=== PATIENT | male | born 1945 | race Caucasian/White ===

== ENCOUNTER 2022-02-04 23:39 | Observation (INO) | payer MEDICARE, OTHER ==
[2022-02-05 00:19] VITALS: BMI 39.0
[2022-02-05] MEDS ORDERED: Guaifenesin DM 100-10/5 ML UDCUP PO PRN (01:16)
[2022-02-05] MEDS ORDERED: Ondansetron PF 4 MG/2 ML Vial IVP PRN (01:16)
[2022-02-05] MEDS ORDERED: Acetaminophen 325 MG TAB PO PRN (01:16)
[2022-02-05] MEDS ORDERED: Calcium Carbonate 500 MG ChewTAB PO PRN (01:16)
[2022-02-05] MEDS ORDERED: Senokot S 8.6-50 MG TAB PO PRN (01:16)
[2022-02-05] MEDS ORDERED: Atorvastatin Calcium 20 MG TAB PO SCH ×2 (01:30→21:00)
[2022-02-05] MEDS ORDERED: Minoxidil 2.5 MG TAB PO SCH ×2 (01:30→21:00)
[2022-02-05] MEDS ORDERED: Potassium Chloride 20 MEQ TAB PO SCH (01:30)
[2022-02-05] MEDS ORDERED: Carvedilol 25 MG TAB PO SCH ×2 (01:30→09:00)
[2022-02-05] MEDS ORDERED: Losartan 25 MG TAB PO SCH (01:30)
[2022-02-05 02:21] LABS: CKMB 1.8 ng/mL (0-6.6)
[2022-02-05 06:12] LABS: Calcium 8.9 mg/dL (7.8-10.44)
[2022-02-05 06:13] LABS: Anion Gap 15 mmol/L (10-20); BUN (Urea Nitrogen) 17 mg/dL (8.4-25.7); Calc. Creatinine Clearance 92 mL/min (70-130); Carbon Dioxide 24 mmol/L (23-31); Chloride 109 mmol/L (98-107); Glucose 97 mg/dL (83-110); Potassium 3.6 mmol/L (3.5-5.1); Sodium 144 mmol/L (136-145)
[2022-02-05 06:33] LABS: CKMB 1.8 ng/mL (0-6.6)
[2022-02-05] MEDS ORDERED: Allopurinol 300 MG TAB PO SCH (09:00)
[2022-02-05] MEDS ORDERED: Amlodipine 10 MG TAB PO SCH (09:00)
[2022-02-05] MEDS ORDERED: Furosemide 40 MG TAB PO SCH (09:00)
[2022-02-05] MEDS ORDERED: Tamsulosin HCl 0.4 MG CAP PO SCH (09:00)
[2022-02-05] MEDS ORDERED: Enoxaparin Sodium 40 MG/0.4 ML SYRINGE SC SCH (09:00)
[2022-02-05 12:33] VITALS: BP 154/70; TEMP 98.7
[2022-02-05] MEDS ORDERED: Aspirin 81 mg Enteric Coated Tablet PO SCH (21:00)
[2022-02-05] MEDS ORDERED: Losartan Potassium 50 MG TAB PO SCH (21:00)
== END 2022-02-05 12:00 | disposition home or self-care (01) ==
LOC: INTOOBSV 23:39 → UNDOADMOB 23:39 → CSHTELE 23:39 → UNDODISOB 02-05 12:00
PROVIDERS: ADMIT Student in an Organized Health Care Education/Training Program; ATTEND Student in an Organized Health Care Education/Training Program
DX: R00.2 Palpitations (principal); R06.00 Dyspnea, unspecified; I44.0 Atrioventricular block, first degree; I44.7 Left bundle-branch block, unspecified; R77.8 Other specified abnormalities of plasma proteins; I13.0 Hypertensive heart and chronic kidney disease with heart failure and stage 1 through stage 4 chronic kidney disease, or unspecified chronic kidney disease; N18.31 Chronic kidney disease, stage 3a; I50.9 Heart failure, unspecified; I25.10 Atherosclerotic heart disease of native coronary artery without angina pectoris; E78.5 Hyperlipidemia, unspecified; Z79.899 Other long term (current) drug therapy; Z79.82 Long term (current) use of aspirin; Z95.5 Presence of coronary angioplasty implant and graft; N40.0 Benign prostatic hyperplasia without lower urinary tract symptoms; R93.89 Abnormal findings on diagnostic imaging of other specified body structures; D68.62 Lupus anticoagulant syndrome
CPT/HCPCS: 80048; 82553; 82962; 84443; 84484 ×2; 93005; 93306; G0378; 36415; 36416; 93010

== ENCOUNTER 2022-03-31 11:22 | Outpatient (CLI) | payer MEDICARE, OTHER | END 2022-03-31 11:23 | disposition home or self-care (01) | LOC: CSHLAB 11:22 | PROVIDERS: ATTEND Internal Medicine | DX: Z20.822 Contact with and (suspected) exposure to COVID-19 (principal) | CPT/HCPCS: 87811 ==

== ENCOUNTER 2022-04-04 13:22 | Outpatient (CLI) | payer MEDICARE, OTHER | END 2022-04-04 13:23 | disposition home or self-care (01) | LOC: CSHCP 13:22 | PROVIDERS: ATTEND Internal Medicine | DX: R06.09 Other forms of dyspnea (principal); R94.2 Abnormal results of pulmonary function studies | CPT/HCPCS: 94060; 94726; 94729; 94760 ==

== ENCOUNTER 2023-07-17 05:50 | Day surgery (SDC) | payer MEDICARE, OTHER ==
[2023-07-14 12:05] VITALS: BMI 30.7
[2023-07-17] MEDS ORDERED: Midazolam HCl 2 mg/2 ml Vial ONE (07:35)
[2023-07-17] MEDS ORDERED: PROPOFOL 60 ML ONE (07:36)
== END 2023-07-17 09:57 | disposition home or self-care (01) ==
LOC: CSHSDC 05:50
PROVIDERS: ATTEND Internal Medicine Gastroenterology
PROC: 0DBK8ZZ Excision of Ascending Colon, Via Natural or Artificial Opening Endoscopic (ICD-10-PCS; principal; 2023-07-17)
PROC: 0DBN8ZZ Excision of Sigmoid Colon, Via Natural or Artificial Opening Endoscopic (ICD-10-PCS; 2023-07-17)
DX: Z12.11 Encounter for screening for malignant neoplasm of colon (principal); D12.2 Benign neoplasm of ascending colon; D12.5 Benign neoplasm of sigmoid colon; K57.30 Diverticulosis of large intestine without perforation or abscess without bleeding; K64.8 Other hemorrhoids; I48.91 Unspecified atrial fibrillation; I10 Essential (primary) hypertension; Z86.010 Personal history of colon polyps; Z88.5 Allergy status to narcotic agent; Z88.8 Allergy status to other drugs, medicaments and biological substances; Z79.82 Long term (current) use of aspirin; Z86.73 Personal history of transient ischemic attack (TIA), and cerebral infarction without residual deficits; Z79.899 Other long term (current) drug therapy
CPT/HCPCS: 88305; J2250; J2704

== ENCOUNTER 2023-07-22 22:02 | Inpatient (IN) | payer MEDICARE, OTHER ==
[2023-07-22 23:19] LABS: #Basophils 0.1 10x3/uL (0.0-0.2); #Eosinphils 0.1 10x3/uL (0.0-0.5); #Monocytes 0.3 10x3/uL (0.0-1.1); #Neutrophils 3.4 10x3/uL (1.5-8.4); %Basophils 0.9 % (0.0-2.0); %Eosinophils 2.5 % (0.0-6.0); %Lymphocytes 29.2 % (18.0-47.0); %Neutrophils 61.2 % (40.0-75.0); Hematocrit 32.1 % (38.8-50.0); Hemoglobin 11.2 g/dL (13.5-17.5); Mean Corpuscular HGB CONC 34.9 g/dL (32.0-36.0); Mean Corpuscular Hemoglobin 31.8 pg (27.0-33.0); Mean Corpuscular Volume 91.2 fl (81.2-95.1); Mean Platelet Volume 10.2 fl (7.4-10.4); Platelet Count 130 10x3/uL (150-450); RBC Distribution Width 13.5 % (11.5-14.5); Red Blood Cell (RBC) Count 3.52 10x6/uL (4.32-5.72); White Blood Cell (WBC) Count 5.5 10x3/uL (3.5-10.5)
[2023-07-22] MEDS ORDERED: Pantoprazole 40 MG VIAL ONE (23:20)
[2023-07-22 23:22] LABS: ALT (SGPT) 23 U/L (8-55); AST (SGOT) 31 U/L (5-34); Albumin 3.7 g/dL (3.4-4.8); Alkaline Phosphatase 52 U/L (40-110); Anion Gap 15 mmol/L (10-20); BUN (Urea Nitrogen) 21 mg/dL (8.4-25.7); Bilirubin, Total 0.8 mg/dL (0.2-1.2); Calc. Creatinine Clearance 0 mL/min (70-130); Calcium 8.6 mg/dL (7.8-10.44); Carbon Dioxide 19 mmol/L (23-31); Chloride 112 mmol/L (98-107); Estimated GFR 54; Globulin 1.9 g/dL (2.4-3.5); Glucose 91 mg/dL (83-110); Potassium 3.7 mmol/L (3.5-5.1); Protein, Total 5.6 g/dL (5.8-8.1); Sodium 142 mmol/L (136-145)
[2023-07-22 23:33] LABS: PTT 89.1 sec (22.0-33.0); Prothrombin Time 21.2 sec (9.5-12.1)
[2023-07-23] MEDS ORDERED: Pantoprazole 40 MG VIAL IVP SCH (01:00)
[2023-07-23] MEDS ORDERED: Lactated Ringer's 1,000 ML IV SCH (01:00)
[2023-07-23 01:11] LABS: Magnesium 1.9 mg/dL (1.6-2.6)
[2023-07-23] MEDS: Sodium Chloride 0.9% 1,000 ML IV SCH ×2 (02:00→10:00)
[2023-07-23 02:04] VITALS: BMI 31.4
[2023-07-23 04:30] LABS: #Basophils 0.1 10x3/uL (0.0-0.2); #Eosinphils 0.2 10x3/uL (0.0-0.5); #Monocytes 0.3 10x3/uL (0.0-1.1); #Neutrophils 2.5 10x3/uL (1.5-8.4); %Eosinophils 3.1 % (0.0-6.0); %Lymphocytes 37.8 % (18.0-47.0); %Monocytes 6.5 % (0.0-10.0); %Neutrophils 51.4 % (40.0-75.0); Anion Gap 13 mmol/L (10-20); BUN (Urea Nitrogen) 22 mg/dL (8.4-25.7); Calc. Creatinine Clearance 72 mL/min (70-130); Calcium 8.4 mg/dL (7.8-10.44); Carbon Dioxide 18 mmol/L (23-31); Chloride 113 mmol/L (98-107); Estimated GFR 62; Glucose 86 mg/dL (83-110); Hematocrit 30.7 % (38.8-50.0); Hemoglobin 10.7 g/dL (13.5-17.5); Mean Corpuscular HGB CONC 34.9 g/dL (32.0-36.0); Mean Corpuscular Hemoglobin 32.6 pg (27.0-33.0); Mean Corpuscular Volume 93.6 fl (81.2-95.1); Mean Platelet Volume 10.5 fl (7.4-10.4); Platelet Count 113 10x3/uL (150-450); Potassium 3.6 mmol/L (3.5-5.1); RBC Distribution Width 13.6 % (11.5-14.5); Red Blood Cell (RBC) Count 3.28 10x6/uL (4.32-5.72); Sodium 140 mmol/L (136-145); White Blood Cell (WBC) Count 4.9 10x3/uL (3.5-10.5)
[2023-07-23 06:16] LABS: INR-International Normal Ratio 1.6; PTT 67.8 sec (22.0-33.0); Prothrombin Time 17.2 sec (9.5-12.1)
[2023-07-23] MEDS: Potassium Chloride 20 MEQ in Premix 1 BAG IVPB SCH ×2 (07:02→08:59)
[2023-07-23 08:16] LABS: Hematocrit 28.6 % (38.8-50.0)
[2023-07-23] MEDS ORDERED: GoLYTELY 4,000 ml Bottle PO SCH (08:30)
[2023-07-23] MEDS: Pantoprazole 40 MG VIAL IVP SCH ×2 (08:59→21:36)
[2023-07-23] MEDS ORDERED: FLU VACC QS2023(65UP)/MF59C/PF 60 MCG/0.5 ML SYRINGE IM ONE (09:00)
[2023-07-23 12:00] LABS: Hematocrit 30.9 % (38.8-50.0)
[2023-07-23 12:01] LABS: Hemoglobin 10.6 g/dL (13.5-17.5)
[2023-07-23 12:36] LABS: Hemoglobin A1c 4.5 % (4.0-6.0)
[2023-07-23 13:43] LABS: #Eosinphils 0.1 10x3/uL (0.0-0.5); #Monocytes 0.3 10x3/uL (0.0-1.1); #Neutrophils 2.6 10x3/uL (1.5-8.4); %Basophils 0.8 % (0.0-2.0); %Eosinophils 2.4 % (0.0-6.0); %Lymphocytes 37.4 % (18.0-47.0); %Monocytes 6.1 % (0.0-10.0); %Neutrophils 53.1 % (40.0-75.0); Hemoglobin 10.2 g/dL (13.5-17.5); Mean Corpuscular HGB CONC 35.2 g/dL (32.0-36.0); Mean Corpuscular Hemoglobin 32.6 pg (27.0-33.0); Mean Corpuscular Volume 92.7 fl (81.2-95.1); Mean Platelet Volume 10.1 fl (7.4-10.4); Platelet Count 115 10x3/uL (150-450); RBC Distribution Width 13.7 % (11.5-14.5); Red Blood Cell (RBC) Count 3.13 10x6/uL (4.32-5.72); White Blood Cell (WBC) Count 4.9 10x3/uL (3.5-10.5)
[2023-07-23] MEDS ORDERED: EPINEPHrine 1 MG/10 ML Abboject SYRINGE ONE (14:38)
[2023-07-23 15:10] LABS: Large Platelets SLIGHT (None Seen)
[2023-07-23 15:11] LABS: Platelet Adequacy Comment Appears Decreased
[2023-07-23] MEDS ORDERED: PROPOFOL 20 ML ONE ×2 (15:14→15:48)
[2023-07-23] MEDS ORDERED: Ondansetron HCl/PF 4 MG/2 ML Vial IVP PRN (15:38)
[2023-07-23] MEDS ORDERED: Promethazine HCl 25 MG/ML VIAL IM PRN (15:38)
[2023-07-23] MEDS ORDERED: Atorvastatin Calcium 20 MG TAB PO SCH (21:00)
[2023-07-23] MEDS ORDERED: Losartan Potassium 50 MG TAB PO SCH (21:00)
[2023-07-23] MEDS ORDERED: Carvedilol 25 MG TAB PO SCH (21:00)
[2023-07-24] MEDS ORDERED: Loratadine 10 MG TAB PO SCH (04:30)
[2023-07-24] MEDS: Sodium Chloride 0.9% 1,000 ML IV SCH ×2 (08:26)
[2023-07-24] MEDS ORDERED: Tamsulosin HCl 0.4 MG CAP PO SCH (09:00)
[2023-07-24] MEDS ORDERED: TOPIRAMATE 25 MG PO SCH (09:00)
[2023-07-24 09:14] VITALS: BP 155/74; TEMP 97.5
== END 2023-07-24 09:36 | disposition home or self-care (01) | DRG 919 ==
LOC: CSHERS 22:02 → INTOOBSV 23:36 → CSHTELE 23:36 → OBSVTOIN 07-23 00:41
PROVIDERS: ADMIT Family Medicine; ATTEND Internal Medicine
PROC: 0W3P8ZZ Control Bleeding in Gastrointestinal Tract, Via Natural or Artificial Opening Endoscopic (ICD-10-PCS; principal; 2023-07-23)
PROC: 3E033XZ Introduction of Vasopressor into Peripheral Vein, Percutaneous Approach (ICD-10-PCS; 2023-07-23)
DX: K91.840 Postprocedural hemorrhage of a digestive system organ or structure following a digestive system procedure (principal); K57.31 Diverticulosis of large intestine without perforation or abscess with bleeding; I48.20 Chronic atrial fibrillation, unspecified; K62.5 Hemorrhage of anus and rectum; I25.10 Atherosclerotic heart disease of native coronary artery without angina pectoris; I10 Essential (primary) hypertension; E78.5 Hyperlipidemia, unspecified; N40.0 Benign prostatic hyperplasia without lower urinary tract symptoms; E74.39 Other disorders of intestinal carbohydrate absorption; D37.4 Neoplasm of uncertain behavior of colon; Z79.01 Long term (current) use of anticoagulants; Z88.5 Allergy status to narcotic agent; Z79.82 Long term (current) use of aspirin; Z88.8 Allergy status to other drugs, medicaments and biological substances; Z79.899 Other long term (current) drug therapy; Z98.49 Cataract extraction status, unspecified eye; Z98.890 Other specified postprocedural states; Z95.0 Presence of cardiac pacemaker; Z90.89 Acquired absence of other organs; Z80.0 Family history of malignant neoplasm of digestive organs; Z80.1 Family history of malignant neoplasm of trachea, bronchus and lung
CPT/HCPCS: 36415; 80048; 80053; 83036; 83735; 85025; 85610; 85730; 86850; 86900; 86901; 93005; 94760; 96374; C9113; J0171; J2704; J3480; J7050; J7120; J7168